=== PATIENT | male | born 1965 | race Caucasian/White ===

== ENCOUNTER 2016-10-15 13:54 | Emergency (ER) | payer MEDICAID ==
[2016-10-15 14:01] VITALS: RESP 16
--- NOTE | 2016-10-15 15:45 | EDPHY ---
H & P Stated Complaint: Infected hair follicle drained at urgent care yesterday;today swollen/red Time Seen by Provider: 10/15/16 15:44 - Personal History Current Tetanus Diphtheria and Acellular Pertussis (TDAP): Yes - Medical/Surgical History Other PMH: neg - Social History Smoking Status: Former smoker Constitutional: Initial Vital Signs Temperature (C) 37 C 10/15/16 13:58 Heart Rate 60 10/15/16 13:58 Respiratory Rate 16 10/15/16 13:58 Blood Pressure 118/71 10/15/16 13:58 O2 Sat (%) 97 10/15/16 13:58 O2 Delivery Mode Room Air Allergies/Adverse Reactions: lactose intolerant Allergy (Mild, Uncoded 10/15/16 13:58) Home Medications: Medication Instructions Recorded Cephalexin [Keflex (RX)] 500 mg PO TID #30 cap 10/15/16 Sulfamethox/Tmp 800/160 mg 1 tab PO 10/15/16 [Bactrim Ds] oxyCODONE/APAP 5/325 [Percocet 1 tab PO 10/15/16 5/325 (*)] Medical Decision Making ED Course/Re-evaluation: CHIEF COMPLAINT: Right cheek abscess. HISTORY OF PRESENT ILLNESS: The patient is a 50-year-old male who presents with a worsening right cheek abscess. He was initially diagnosed a few days ago at Urgent Care after he noticed right cheek swelling. He had the abscess drained and packed. Since then, he has noticed increased cervical lymphadenopathy and red streaking. He denies fever, chills, nausea, vomiting, or other complaints at this time. REVIEW OF SYSTEMS: A 10 point review of systems was performed and is negative with the exception of the elements mentioned in the history of present illness. PHYSICAL EXAM: HR, BP, O2 Sat, RR. Temp noted General Appearance: Alert, well hydrated, appropriate, and non-toxic appearing. Head: Atraumatic without scalp tenderness or obvious injury. Right cheek swelling. Red streaking down lateral side of neck. Eyes: Pupils equal, round, reactive to light and accommodation, EOMI, no trauma , no injection. Ears: Clear bilaterally, no perforation, normal landmarks Nose: Atraumatic, no rhinorrhea, clear. Throat: There is no erythema or exudates, no lesions, normal tonsils, mucus membranes moist. Neck: Supple, 2+ carotid upstroke, nontender, no lymphadenopathy. Respiratory: No retractions, no distress, no wheezes, and no accessory muscle use. Lungs are clear to auscultation bilaterally. Cardiovascular: Regular rate and rhythm, no murmurs, rubs, or gallops. Bilateral carotid, radial, dorsalis pedis, and posterior tibial pulses intact. Good capillary refill all extremities. Gastrointestinal: Abdomen is soft, nontender, non-distended, no masses, no rebound, no guarding, no peritoneal signs. Musculoskeletal: Normal active ROM of all extremities, atraumatic. Neurological: Alert, appropriate, and interactive. The patient has normal DTRs and non-focal cranial nerves, motor, sensory, and cerebellar exam. Skin: No rashes, good turgor, no nodules on palpation. Past medical history: Denies. Past surgical history: Denies. Family history: N/A. Social history: Here alone. DIAGNOSTICS/PROCEDURES/CRITICAL CARE TIME: Study: Maxillofacial CT with contrast Indication: Abscess. Results: See Image Results section for official report. The study was read by the radiologist. I viewed the images myself on the PACS system. DIFFERENTIAL DIAGNOSIS: The differential diagnosis includes, but is not limited to: abscess, cellulitis , sepsis, severe sepsis. MEDICAL DECISION MAKING: This 50-year-old male had a right cheek abscess drained and packed at Urgent Care a few days ago. His swelling has returned and he has red streaking that tracks down his neck. He has no signs of systemic illness. I removed the packing and was able to express a large amount of pus from the abscess. I have ordered a maxillofacial CT scan with contrast to rule out parotid or other deep space abscess. An IV was established. ISTAT ordered. 1gm IV Vancomycin administered. ISTAT is normal. CT results conveyed to me by the radiologist on-call. He reports no deep space abscess. He sees mildly swollen lymph nodes. The current abscess has drained to the surface. I will add Keflex to the patient's current Bactrim regimen as this spreading cellulitis is located on his face and he meets the criteria for double coverage. I discussed these results and the plan with the patient at this time and answered his questions. He is comfortable with the plan. - Data Points Laboratory Results: 10/15/16 16:02 POC Hgb 14.6 gm/dL gm/dL (14.5-17.3) POC Hct 43 % % (42.8-50.6) POC Sodium 141 mEq/L mEq/L (134-144) POC Potassium 4.0 mEq/L mEq/L (3.3-5.0) POC Chloride 102 mEq/L mEq/L (96-108) POC BUN 17 mg/dL mg/dL (7-23) POC Creatinine 0.8 mg/dL mg/dL (0.8-1.5) POC Glucose 77 mg/dL mg/dL (70-100) Medications Given: Discontinued Medications Vancomycin/Sodium Chloride (Vancomycin 1 Gm (Premix)) 250 mls @ 250 mls/hr IV EDNOW ONE PRN Reason: Protocol Stop: 10/15/16 16:59 Last Admin: 10/15/16 16:53 Dose: 250 mls Point of Care Test Results: 10/15/16 16:02 POC Sodium 141 POC Potassium 4.0 POC Chloride 102 POC BUN 17 POC Creatinine 0.8 POC Glucose 77 Departure - Departure Disposition: Home, Routine, Self-Care Clinical Impression: Abscess Cellulitis Qualifiers: Site of cellulitis: face Qualified Code(s): L03.211 - Cellulitis of face Condition: Good Instructions: Cellulitis (ED), Abscess (ED) Additional Instructions: Continue taking your Bactrim. Also take Keflex as I have prescribed. Apply a warm washcloth to your cheek 4-5 times daily. Follow up with your PCP for reevaluation. If you need a PCP you have been given the telephone number of the on-call provider. Return for any serious worsening of condition. Referrals: Georgi Rebolledo MD [Medical Doctor] - As per Instructions Prescriptions: Cephalexin [Keflex (RX)] 500 mg PO TID #30 cap Report Scribed for: Esteban Ceron Report Scribed by: Ehsan Mcconnell Date of Report: 10/15/16 Time of Report: 16:28
[2016-10-15] MEDS ORDERED: VANCOMYCIN HCL/NORMAL SALINE 250 ML IV ONE (16:00)
[2016-10-15] MEDS ORDERED: IOPAMIDOL (ISOVUE-300) 100 ML BTL IV ONE (16:14)
[2016-10-15 17:59] VITALS: BP 112/63; PULSE 69; TEMP 97.9; O2SAT 96
== END 2016-10-15 17:59 | disposition home or self-care (01) ==
DX: L02.01 Cutaneous abscess of face (principal); L03.211 Cellulitis of face; Z87.891 Personal history of nicotine dependence
CPT/HCPCS: 82947-QW; 96365; J3370; Q9967